=== PATIENT | female | born 1980 | race Caucasian/White ===

== ENCOUNTER → 2016-09-29 | Outpatient (CLI) | payer MEDICAID ==
[~2016-09-29] MED LIST: ABCT PO; ACET-789 PO; AGM500T PO; ASPI-504 PO; CARV12.5 PO; CARV12.52 PO; CARV6.25 PO; CLIN-79 PO; CRV25T PO; DIAZ5TAB3 PO; DIVA500T7 PO; DVL500TSR PO; ESTR1TAB24 PO; GABA800T PO; GABA800T2; HALO2TAB12 PO; LISI-597 PO; LMT25T; METH-290; METH10TA2 PO; METH20TA36 PO; NF-LISIN40 PO; NIAC500T7 PO; ONDAN4ODT PO; OXYC15TA73 PO; OXYC15TA79 PO; PRAV20TA PO; PRM25T PO; SPIR25TA PO; TAMS-8 PO; TERA5CAP10 PO; TOPI100T38 PO; TRAM-25; TRZS2T PO; VERA180T5 PO; VERAPAMIL 360 MG
--- NOTE | 2016-09-29 15:23 | Diagnostic Imaging Report ---
PROCEDURE: US Thyroid. TECHNIQUE: Multiple real-time grayscale images were obtained of the thyroid in various projections. INDICATION: Hyperthyroidism. Malignant hypertension. Followup of previous exam from 12/02/2013. FINDINGS: Right lobe measures 5.5 x 1.7 x 1.7 cm. The dominant nodule in inferior portion previously measuring 1.2 x 0.9 x 1 cm now measures 1.7 x 1.4 x 1.4 cm. There is a 3 mm hypoechoic lesion in the upper pole. The left lobe measures 5 x 1.1 x 1.7 cm. A 5 mm hypoechoic nodule noted in the upper pole. There are several additional other tiny hypoechoic lesions present. IMPRESSION: Dominant nodule in the inferior pole of the right lobe which is well-circumscribed. This has increased slightly in size since previous exam. Would consider ultrasound-guided FNA. Dictated by: Dictated on workstation # [id number]
== END ==
LOC: RAD 13:01
PROVIDERS: ATTEND Family Medicine
DX: E04.2 Nontoxic multinodular goiter (principal)
CPT/HCPCS: 76536